=== PATIENT | female | born 1975 | race Caucasian/White ===

== ENCOUNTER → 2020-04-27 | Outpatient (CLI) | payer OTHER | END | disposition home or self-care (01) | LOC: LAB EV 14:58 → LAB SHORT 14:58 | DX: N12 Tubulo-interstitial nephritis, not specified as acute or chronic (principal) | CPT/HCPCS: 87077; 87086; 87186 ==

== ENCOUNTER → 2020-06-07 | Outpatient (CLI) | payer OTHER ==
[2020-06-07 16:34] LABS: Source, Urine Clean Catch
[2020-06-07 19:08] LABS: Appearance, Urine Clear (Clear); Bilirubin, Urine Neg (Neg); Blood, Urine Neg (Neg); Color, Urine Yellow (P-Yellow); Glucose Qualitative, Urine Neg (Neg); Ketones, Urine Neg (Neg); Leukocyte Esterase, Urine Neg (Neg); Nitrite, Urine Neg (Neg); Protein, Urine Neg (Neg); Urobilinogen, Urine NORM (Normal)
== END | disposition home or self-care (01) ==
LOC: LAB SHORT 16:31 → LAB 16:31
PROVIDERS: Obstetrics & Gynecology
DX: Z09 Encounter for follow-up examination after completed treatment for conditions other than malignant neoplasm (principal); Z87.440 Personal history of urinary (tract) infections
CPT/HCPCS: 81003

== ENCOUNTER → 2020-06-20 | Outpatient (CLI) | payer OTHER | END | disposition home or self-care (01) | LOC: LAB EV 14:56 → LAB SHORT 14:56 | DX: L02.412 Cutaneous abscess of left axilla (principal) | CPT/HCPCS: 87070; 87075; 87077; 87147; 87186; 87205 ==

== ENCOUNTER 2021-08-01 07:08 | Day surgery (SDC) | payer OTHER ==
[~2021-08-01] VITALS: Ht 165.1 cm; Wt 104.9 kg
[2021-08-01] MEDS ORDERED: ZOCOR20 MG (08:10)
[2021-08-01] MEDS ORDERED: Budeprion Xl300 MG (08:10)
[2021-08-01] MEDS ORDERED: OXYB5 (08:10)
[2021-08-01] MEDS ORDERED: ALBU90OI6 (08:10)
[2021-08-01] MEDS ORDERED: ALPR.5 (08:10)
[2021-08-01] MEDS ORDERED: Synthroid200 MCG (08:11)
[2021-08-01] MEDS ORDERED: FIASP 100100 UNIT/3 (08:12)
[2021-08-01] MEDS ORDERED: SUMA25 (08:12)
[2021-08-01] MEDS ORDERED: Prinivil10 MG (08:12)
== END 2021-08-01 09:14 | disposition home or self-care (01) ==
LOC: ORSCSDS 07:08
PROVIDERS: Orthopaedic Surgery
PROC: 01N50ZZ Release Median Nerve, Open Approach (ICD-10-PCS; principal; 2021-08-01 08:30)
PROC: 0LN80ZZ Release Left Hand Tendon, Open Approach (ICD-10-PCS; principal; 2021-08-01 08:30)
DX: G56.03 Carpal tunnel syndrome, bilateral upper limbs (principal); M65.342 Trigger finger, left ring finger; F41.9 Anxiety disorder, unspecified; F32.A Depression, unspecified; M79.7 Fibromyalgia; E11.9 Type 2 diabetes mellitus without complications; Z87.891 Personal history of nicotine dependence; E66.9 Obesity, unspecified; Z68.38 Body mass index [BMI] 38.0-38.9, adult; Z79.4 Long term (current) use of insulin; I10 Essential (primary) hypertension; Z79.899 Other long term (current) drug therapy
CPT/HCPCS: 82947; J2704; J7120